=== PATIENT | male | born 1960 | race Caucasian/White ===

== ENCOUNTER 2016-10-10 18:37 | Emergency (ER) | payer OTHER ==
[~2016-10-10] VITALS: Ht 193 cm; Wt 130.0 kg
[2016-10-10 21:07] VITALS: BP 156/84
== END 2016-10-10 21:07 | disposition home or self-care (01) ==
LOC: ED 18:37
DX: S13.4XXA Sprain of ligaments of cervical spine, initial encounter (principal); S40.812A Abrasion of left upper arm, initial encounter; S40.811A Abrasion of right upper arm, initial encounter; S00.411A Abrasion of right ear, initial encounter; S00.01XA Abrasion of scalp, initial encounter; S09.8XXA Other specified injuries of head, initial encounter; S20.212A Contusion of left front wall of thorax, initial encounter; S20.211A Contusion of right front wall of thorax, initial encounter; I10 Essential (primary) hypertension; Y92.488 Other paved roadways as the place of occurrence of the external cause; V48.5XXA Car driver injured in noncollision transport accident in traffic accident, initial encounter; F17.210 Nicotine dependence, cigarettes, uncomplicated; Z23 Encounter for immunization
CPT/HCPCS: 90715; J1885